=== PATIENT | male | born 1965 | race Caucasian/White ===

== ENCOUNTER 2017-03-29 09:37 | Emergency (ER) | payer MEDICAID, SELFPAY ==
[~2017-03-29] VITALS: Ht 175.3 cm; Wt 63.6 kg
[2017-03-29] MEDS ORDERED: SODIUM CHLORIDE 0.9% 1,000ML IVBOLUS ONE (10:00)
[2017-03-29] MEDS ORDERED: SODIUM CHLORIDE FLUSH 10ML SYR IVF ONE (10:00)
[2017-03-29] MEDS ORDERED: EMTR1TAB14 PO (10:26)
[2017-03-29] MEDS ORDERED: MELO15TA24 PO (10:26)
[2017-03-29] MEDS ORDERED: TIOT18CA INH (10:26)
[2017-03-29] MEDS ORDERED: DIPH1TAB6 PO (10:26)
[2017-03-29] MEDS ORDERED: AZIT500T PO (10:26)
[2017-03-29] MEDS ORDERED: FLUT1AER INH (10:26)
[2017-03-29] MEDS ORDERED: SULF1TAB23 PO (10:26)
[2017-03-29 10:32] LABS: MEAN CORPUSCULAR HEMOGLOBIN 28.6 pg (27.5-34.5); MEAN CORPUSCULAR HGB CONC 33.2 g/dL (33.2-36.2); MEAN CORPUSCULAR VOLUME 86.2 fL (81-97); MEAN PLATELET VOLUME 7.8 fL (7.4-10.4); PLATELET COUNT 253 x10^3/uL (130-400); RED BLOOD COUNT 5.77 x10^6/uL (4.38-5.82); RED CELL DISTRIBUTION WIDTH 14.1 % (9.4-14.8)
[2017-03-29 10:44] LABS: ALANINE AMINOTRANSFERASE 13 U/L (12-78); ALBUMIN 2.5 g/dL (3.4-5.0); ANION GAP 10 mmol/L (5-15); CHLORIDE 96 mmol/L (98-107); CREATININE 1.09 mg/dL (0.7-1.3)
[2017-03-29 10:47] LABS: ALKALINE PHOSPHATASE 90 U/L (45-117); BILIRUBIN,TOTAL 1.5 mg/dL (0.2-1.0)
[2017-03-29 10:57] LABS: MD YES
[2017-03-29 10:59] LABS: BAND#(MANUAL) 3.74 x10^3/uL; BANDS%(MANUAL) 20 % (0-7); LYMPH#(MANUAL) 1.87 x10^3/uL (1-3.4); LYMPHS% (MANUAL) 10 % (22-44); MONOS#(MANUAL) 1.12 x10^3/uL (0.3-2.7); MONOS% (MANUAL) 6 % (2-9); SEG#(MANUAL) 11.97 x10^3/uL (1.8-6.8); SEGS% (MANUAL) 64 % (42-75)
[2017-03-29 11:00] LABS: <PLATELET ESTIMATE> ADEQUATE; <PLT MORPHOLOGY> NORMAL PLT MORPH; ANISOCYTOSIS 1+; TOXIC GRAN 1+
[2017-03-29 11:03] LABS: CULTURE INDICATED? YES; MICROSCOPIC INDICATED
[2017-03-29] MEDS ORDERED: OMNIPAQUE 350 MG/ML, 100ML BOTTLE ONE (11:34)
[2017-03-29] MEDS ORDERED: CIPROFLOXACIN/PMX 400MG/200ML 100 ML IVPB ONE (12:00)
[2017-03-29] MEDS ORDERED: METRONIDAZOLE PMX 500MG/100ML 100 ML IVPB ONE (12:00)
[2017-03-29] MEDS ORDERED: CIPROFLOXACIN/PMX 400MG/200ML 200 ML ONE (12:21)
[2017-03-29] MEDS ORDERED: METRONIDAZOLE PMX 500MG/100ML 100 ML ONE (13:30)
[2017-03-29 14:50] VITALS: BP 122/59
== END 2017-03-29 14:53 | disposition home or self-care (01) ==
LOC: ED 10:17
DX: A09 Infectious gastroenteritis and colitis, unspecified (principal)
CPT/HCPCS: 36415; 74177; 80053; 81001; 83690; 85025; 87086; 96361; 96365; 96368; 99285; J0744; J7030; Q9967

== ENCOUNTER 2018-02-12 08:19 | Emergency (ER) | payer MEDICAID ==
[~2018-02-12] VITALS: Ht 175.3 cm; Wt 66.8 kg
[~2018-02-12 08:19] MED LIST: AZIT500T PO; DIPH1TAB6 PO; EMTR1TAB14 PO; FLUT1AER INH; MELO15TA24 PO; SULF1TAB23 PO; TIOT18CA INH
[2018-02-12] MEDS ORDERED: CEFDINIR 300 MG CAPSULE PO STA (09:26)
[2018-02-12] MEDS ORDERED: PHENAZOPYRIDINE 200 MG TABLET PO ONE (09:30)
[2018-02-12 09:43] LABS: CULTURE INDICATED? YES; MICROSCOPIC INDICATED
[2018-02-12] MEDS ORDERED: PHENAZOPYRIDINE 200 MG TABLET ONE (09:51)
[2018-02-12] MEDS ORDERED: CEFDINIR 300 MG CAPSULE ONE (09:51)
[2018-02-12 09:54] VITALS: BP 121/82
[2018-02-12] MEDS ORDERED: AZITHROMYCIN 250 MG TABLET ONE (10:00)
[2018-02-12] MEDS ORDERED: AZITHROMYCIN 500 MG TABLET PO ONE (10:00)
[2018-02-12] MEDS ORDERED: CEFTRIAXONE 250 MG ONE (10:00)
[2018-02-12] MEDS ORDERED: CEFTRIAXONE 1,000 MG IM ONE (10:00)
[2018-02-12] MEDS ORDERED: LIDOCAINE-MPF 1%, 5ML ONE (10:00)
== END 2018-02-12 10:23 | disposition home or self-care (01) ==
LOC: ED 09:37
DX: N30.00 Acute cystitis without hematuria (principal); Z21 Asymptomatic human immunodeficiency virus [HIV] infection status
CPT/HCPCS: 81001; 87077; 87086; 87186; 87491; 87591; 96372; 99284; J0696

== ENCOUNTER 2018-02-13 05:12 | Emergency (ER) | payer MEDICAID ==
[~2018-02-13] VITALS: Ht 175.3 cm; Wt 67.0 kg
[2018-02-13] MEDS ORDERED: CEFTRIAXONE 1,000 MG ONE (05:43)
[2018-02-13 05:50] LABS: MICROSCOPIC AUTO
[2018-02-13 05:52] VITALS: BP 110/67
[2018-02-13 05:52] LABS: CULTURE INDICATED? YES
[2018-02-13 05:55] LABS: BASOPHILS # (AUTO) 0.06 x10^3/uL (0-0.1); BASOPHILS % (AUTO) 1 % (0-1); EOSINOPHILS # (AUTO) 0.03 x10^3/uL (0-0.4); EOSINOPHILS % (AUTO) 0 % (1-7); LYMPHOCYTES # (AUTO) 1.71 x10^3/uL (1-3.4); LYMPHOCYTES % (AUTO) 20 % (22-44); MD NO; MEAN CORPUSCULAR HEMOGLOBIN 28.7 pg (27.5-34.5); MEAN CORPUSCULAR HGB CONC 33.9 g/dL (33.2-36.2); MEAN CORPUSCULAR VOLUME 84.6 fL (81-97); MEAN PLATELET VOLUME 7.3 fL (7.4-10.4); MONOCYTES % (AUTO) 11 % (2-9); NEUTROPHILS # (AUTO) 5.79 x10^3/uL (1.8-6.8); NEUTROPHILS % (AUTO) 68 % (42-75); PLATELET COUNT 222 x10^3/uL (130-400); RED BLOOD COUNT 4.99 x10^6/uL (4.38-5.82); RED CELL DISTRIBUTION WIDTH 14.6 % (9.4-14.8)
[2018-02-13] MEDS ORDERED: CEFTRIAXONE 1,000 MG IM ONE (06:00)
[2018-02-13 06:03] LABS: ALBUMIN 2.8 g/dL (3.4-5.0); ANION GAP 6 mmol/L (5-15); CALCIUM 8.1 mg/dL (8.5-10.1); CHLORIDE 105 mmol/L (98-107)
[2018-02-13 06:05] LABS: CREATININE 1.18 mg/dL (0.7-1.3)
== END 2018-02-13 06:23 | disposition home or self-care (01) ==
LOC: ED 06:17
DX: N30.00 Acute cystitis without hematuria (principal); N34.2 Other urethritis; F17.210 Nicotine dependence, cigarettes, uncomplicated; Z21 Asymptomatic human immunodeficiency virus [HIV] infection status
CPT/HCPCS: 36415; 80048; 81001; 82040; 85025; 87086; 96372; 99283; J0696

== ENCOUNTER 2018-05-27 23:59 | Emergency (ER) | payer MEDICAID ==
[~2018-05-27] VITALS: Ht 172.7 cm; Wt 86.8 kg
--- NOTE | 2018-05-28 00:47 | NUR ---
pt called to room from lobby
--- NOTE | 2018-05-28 01:20 | NUR ---
AWAITING RESULTS FOR PT. NO IMMEDIATE NEEDS FROM PT. CALL LIGHT WITHIN REACH.
[2018-05-28 01:35] LABS: BASOPHILS # (AUTO) 0.04 x10^3/uL (0-0.1); BASOPHILS % (AUTO) 1 % (0-1); EOSINOPHILS # (AUTO) 0.16 x10^3/uL (0-0.4); EOSINOPHILS % (AUTO) 2 % (1-7); LYMPHOCYTES # (AUTO) 1.59 x10^3/uL (1-3.4); LYMPHOCYTES % (AUTO) 23 % (22-44); MD NO; MEAN CORPUSCULAR HEMOGLOBIN 29.2 pg (27.5-34.5); MEAN CORPUSCULAR HGB CONC 33.9 g/dL (33.2-36.2); MEAN PLATELET VOLUME 7.8 fL (7.4-10.4); MONOCYTES # (AUTO) 0.51 x10^3/uL (0.2-0.8); MONOCYTES % (AUTO) 8 % (2-9); NEUTROPHILS # (AUTO) 4.55 x10^3/uL (1.8-6.8); NEUTROPHILS % (AUTO) 66 % (42-75); PLATELET COUNT 213 x10^3/uL (130-400); RED BLOOD COUNT 5.61 x10^6/uL (4.38-5.82); RED CELL DISTRIBUTION WIDTH 14.4 % (9.4-14.8)
[2018-05-28 01:36] LABS: ALBUMIN 3.5 g/dL (3.4-5.0); ANION GAP 4 mmol/L (5-15); CALCIUM 8.6 mg/dL (8.5-10.1); CHLORIDE 112 mmol/L (98-107); CREATININE 1.29 mg/dL (0.7-1.3)
[2018-05-28 01:39] LABS: TROPONIN I < 0.015 ng/mL (0.000-0.045)
--- NOTE | 2018-05-28 03:21 | NUR ---
AWAITING RECORDS FROM [facility]. NO NEEDS FROM PT AT THIS TIME. VSS.
[2018-05-28 04:43] VITALS: BP 133/70
--- NOTE | 2018-05-28 04:44 | NUR ---
AWAITING RECORDS FROM [facility]. NO IMMEDIATE NEEDS FROM PT. GIVEN WATER PER REQUEST.
== END 2018-05-28 05:22 | disposition home or self-care (01) ==
LOC: ED 05-28 01:10
DX: J44.1 Chronic obstructive pulmonary disease with (acute) exacerbation (principal); R06.00 Dyspnea, unspecified; Z21 Asymptomatic human immunodeficiency virus [HIV] infection status
CPT/HCPCS: 36415; 71046; 80048; 82040; 84484; 85025; 93005; 99284

== ENCOUNTER 2018-07-21 06:47 | Emergency (ER) | payer MEDICAID ==
[~2018-07-21] VITALS: Ht 175.3 cm; Wt 64.3 kg
[2018-07-21 06:51] VITALS: BP 125/81
--- NOTE | 2018-07-21 07:05 | NUR ---
THIS IS A 52 YEAR OLD MALE WHO C/O OF HAVING A "DILDO" STUCK IN RECTUM X 3 HOURS. PT HAS HX OF HIV, AND METH DRUG USE. PT COOPERATIVE. ASKED TO GET UNDRESS, AWAIT MD FOR ORDER.
--- NOTE | 2018-07-21 07:38 | NUR ---
PT RESTING, VERBALIZED NO NEEDS AT THIS TIME.
--- NOTE | 2018-07-21 08:34 | NUR ---
ASSISTED WITH FB REMOVAL FROM RECTUM. PT TOLERATED WELL. JULIO CESAR KING
[2018-07-21] MEDS ORDERED: CEFAZOLIN 1,000 MG ONE (08:41)
[2018-07-21] MEDS ORDERED: CEFAZOLIN 1,000 MG IM ONE (09:00)
--- NOTE | 2018-07-21 09:11 | NUR ---
TASK RN: Discharge instructions discussed with patient, questions answered, verbalizes understanding. Prescription provided with instruction for use, patient verbalizes understanding. Patient ambulates with steady gait to discharge desk.
== END 2018-07-21 09:14 | disposition home or self-care (01) ==
LOC: ED 08:43
DX: T18.5XXA Foreign body in anus and rectum, initial encounter (principal); J44.9 Chronic obstructive pulmonary disease, unspecified; X58.XXXA Exposure to other specified factors, initial encounter; Y93.89 Activity, other specified; Y92.89 Other specified places as the place of occurrence of the external cause; Y99.8 Other external cause status
CPT/HCPCS: 96372; 99284; J0690

== ENCOUNTER 2018-10-22 23:44 | Inpatient (IN) | payer MEDICAID ==
[~2018-10-22] VITALS: Ht 175.3 cm; Wt 66.9 kg
--- NOTE | 2018-10-23 | NUR ---
FEVER AT HOME AND RIGHT SIDED CHEST PAIN, STATED 1899. HX OF COLAPSED LUNG. MONITORS APPLIED, SIDERAIL SUP X2, CALL LIGHT WITHIN REACH. ERP AT BEDSIDE FOR EVAL
[2018-10-23] MEDS ORDERED: TIOT18CA INH (00:03)
[2018-10-23] MEDS ORDERED: ALBU0.63 NEB (00:03)
[2018-10-23] MEDS ORDERED: BICT1TAB PO (00:06)
[2018-10-23] MEDS ORDERED: FLUT1AER INH (00:06)
[2018-10-23] MEDS ORDERED: HYDROcodone/APAP 5/325 TABLET ONE (00:08)
--- NOTE | 2018-10-23 00:10 | NUR ---
pt medicated pr mar
[2018-10-23 00:29] LABS: BASOPHILS # (AUTO) 0.02 x10^3/uL (0-0.1); BASOPHILS % (AUTO) 0 % (0-1); EOSINOPHILS # (AUTO) 0.01 x10^3/uL (0-0.4); EOSINOPHILS % (AUTO) 0 % (1-7); LYMPHOCYTES # (AUTO) 0.83 x10^3/uL (1-3.4); LYMPHOCYTES % (AUTO) 8 % (22-44); MD NO; MEAN CORPUSCULAR HEMOGLOBIN 29.3 pg (27.5-34.5); MEAN CORPUSCULAR HGB CONC 33.4 g/dL (33.2-36.2); MEAN CORPUSCULAR VOLUME 87.6 fL (81-97); MEAN PLATELET VOLUME 7.5 fL (7.4-10.4); MONOCYTES # (AUTO) 0.61 x10^3/uL (0.2-0.8); MONOCYTES % (AUTO) 6 % (2-9); NEUTROPHILS # (AUTO) 9.26 x10^3/uL (1.8-6.8); NEUTROPHILS % (AUTO) 86 % (42-75); PLATELET COUNT 191 x10^3/uL (130-400); RED BLOOD COUNT 5.28 x10^6/uL (4.38-5.82); RED CELL DISTRIBUTION WIDTH 14.2 % (9.4-14.8)
[2018-10-23] MEDS ORDERED: HYDROcodone/APAP 5/325 TABLET PO ONE (00:30)
[2018-10-23 00:38] LABS: ALANINE AMINOTRANSFERASE 17 U/L (12-78); ALBUMIN 3.5 g/dL (3.4-5.0); ANION GAP 6 mmol/L (5-15); CALCIUM 8.3 mg/dL (8.5-10.1); CHLORIDE 105 mmol/L (98-107); D-DIMER 0.62 ug/mlFEU (0.00-0.52); INTERNATIONAL NORMALIZED RATIO 1.12 (0.93-1.1); PROTHROMBIN TIME 11.7 Seconds (9.6-11.5)
[2018-10-23 00:42] LABS: ALKALINE PHOSPHATASE 99 U/L (45-117); BILIRUBIN,TOTAL 0.7 mg/dL (0.2-1.0); TOTAL PROTEIN 7.3 g/dL (6.4-8.2); TROPONIN I < 0.015 ng/mL (0.000-0.045)
--- NOTE | 2018-10-23 01:02 | NUR ---
iv site started. additional order received for cta
--- NOTE | 2018-10-23 01:07 | NUR ---
PT TO CT
[2018-10-23] MEDS ORDERED: CEFTRIAXONE PMX 1GM/50ML 50 ML ONE (02:23)
[2018-10-23] MEDS ORDERED: AZITHROMYCIN 500 MG in SODIUM CHLORIDE 0.9% 250 ML IV ONE (02:30)
[2018-10-23] MEDS ORDERED: SODIUM CHLORIDE 0.9% 1,000ML IVBOLUS ONE (02:30)
[2018-10-23] MEDS ORDERED: CEFTRIAXONE PMX 1GM/50ML 50 ML IV ONE ×2 (02:30→06:30)
--- NOTE | 2018-10-23 02:37 | NUR ---
iv abx started, lab c/x x 2 sets drawn prior
[2018-10-23 03:21] VITALS: BP 97/59
[2018-10-23] MEDS ORDERED: SODIUM CHLORIDE 0.9% 1,000 ML IV SCH (05:54)
[2018-10-23] MEDS ORDERED: morphine SULFATE 10 MG/ML, 1ML IVPush PRN (06:00)
[2018-10-23] MEDS ORDERED: BISACODYL 10 MG SUPP PR PRN (06:00)
[2018-10-23] MEDS ORDERED: PROMETHAZINE 25 MG/ML, 1ML IM PRN (06:00)
[2018-10-23] MEDS: NICOTINE 14MG/24 HR PATCH.TD24 TD SCH (06:00)
[2018-10-23] MEDS ORDERED: LABETALOL 5MG/ML, 20ML IVPush PRN (06:00)
[2018-10-23] MEDS ORDERED: hydrALAzine 20 MG/ML, 1ML IVPush PRN (06:00)
[2018-10-23] MEDS ORDERED: ONDANSETRON ODT 4 MG PO PRN (06:00)
[2018-10-23] MEDS ORDERED: POLYETHYLENE GLYCOL 17 GM PACKET PO PRN (06:00)
[2018-10-23] MEDS ORDERED: ONDANSETRON 2MG/ML, 2ML IVPush PRN (06:00)
[2018-10-23] MEDS ORDERED: ACETAMINOPHEN 325 MG TABLET PO PRN (06:00)
[2018-10-23] MEDS ORDERED: OXYcodone IR 5MG TABLET PO PRN (06:00)
[2018-10-23] MEDS ORDERED: DOCUSATE 100 MG CAPSULE PO PRN (06:00)
[2018-10-23] MEDS ORDERED: POTASSIUM CHLORIDE 20 MEQ TAB.ER.PRT PO ONE (06:30)
[2018-10-23 07:09] VITALS: BP 102/66
[2018-10-23 07:21] LABS: FREE T4 (FREE THYROXINE) 1.1 ng/dL (0.76-1.46)
[2018-10-23] MEDS: ALBUTEROL SULFATE 2.5 MG/3 ML NPPB SCH ×4 (07:30→19:56)
[2018-10-23] MEDS: BUDESONIDE 0.5 MG/2 ML INHA NPPB SCH ×2 (07:30→19:56)
[2018-10-23 07:58] LABS: HEMOGLOBIN A1C 5.7 % (4.2-6.3)
[2018-10-23] MEDS: AZITHROMYCIN 500 MG in SODIUM CHLORIDE 0.9% 250 ML IV SCH (08:47)
[2018-10-23 10:06] LABS: MICROSCOPIC AUTO
[2018-10-23 10:07] LABS: CULTURE INDICATED? NO
[2018-10-23] MEDS ORDERED: POTASSIUM CHLORIDE 20 MEQ TAB.ER.PRT ONE (10:49)
[2018-10-23] MEDS: BICTEGRAV/EMTRICIT/TENOFOV ALA TAB PO SCH (10:52)
[2018-10-23] MEDS: ENOXAPARIN 40 MG/0.4 ML SQ SCH (10:53)
[2018-10-23 13:16] VITALS: BP 108/72
[2018-10-23 19:16] VITALS: BP 120/70
[2018-10-24] MEDS: CEFTRIAXONE PMX 2GM/50ML 50 ML IV SCH (00:29)
[2018-10-24 00:54] VITALS: BP 135/74
[2018-10-24] MEDS: NICOTINE 14MG/24 HR PATCH.TD24 TD SCH (04:18)
[2018-10-24 05:54] LABS: BASOPHILS # (AUTO) 0.02 x10^3/uL (0-0.1); BASOPHILS % (AUTO) 0 % (0-1); EOSINOPHILS # (AUTO) 0.02 x10^3/uL (0-0.4); EOSINOPHILS % (AUTO) 0 % (1-7); LYMPHOCYTES # (AUTO) 0.78 x10^3/uL (1-3.4); LYMPHOCYTES % (AUTO) 16 % (22-44); MD NO; MEAN CORPUSCULAR HEMOGLOBIN 29.6 pg (27.5-34.5); MEAN CORPUSCULAR HGB CONC 33.2 g/dL (33.2-36.2); MEAN CORPUSCULAR VOLUME 89.2 fL (81-97); MONOCYTES # (AUTO) 0.45 x10^3/uL (0.2-0.8); MONOCYTES % (AUTO) 9 % (2-9); NEUTROPHILS # (AUTO) 3.49 x10^3/uL (1.8-6.8); NEUTROPHILS % (AUTO) 73 % (42-75); PLATELET COUNT 178 x10^3/uL (130-400); RED BLOOD COUNT 4.81 x10^6/uL (4.38-5.82); RED CELL DISTRIBUTION WIDTH 14.6 % (9.4-14.8)
[2018-10-24 06:02] LABS: CHLORIDE 109 mmol/L (98-107)
[2018-10-24 06:16] LABS: ALANINE AMINOTRANSFERASE 15 U/L (12-78); ALKALINE PHOSPHATASE 79 U/L (45-117); ANION GAP 7 mmol/L (5-15); BILIRUBIN,TOTAL 1.3 mg/dL (0.2-1.0); CALCIUM 8.1 mg/dL (8.5-10.1); CHOL/HDL RATIO 2.8; CHOLESTEROL, TOTAL 102 mg/dL (140-239); CREATININE 1.06 mg/dL (0.7-1.3); HDL CHOL % 35 % (26-37); HDL CHOLESTEROL (DIRECT) 36 mg/dL (40-60); LDL CHOLESTEROL,CALCULATED 54 mg/dL (54-169); LDL/HDL RATIO 1.5 (0.5-3.0); TOTAL PROTEIN 6.7 g/dL (6.4-8.2); TRIGLYCERIDES 60 mg/dL (50-200); VLDL CHOLESTEROL 12 mg/dL (0-25)
[2018-10-24] MEDS: BUDESONIDE 0.5 MG/2 ML INHA NPPB SCH ×2 (07:55→19:10)
[2018-10-24] MEDS: ALBUTEROL SULFATE 2.5 MG/3 ML NPPB SCH ×3 (07:55→16:30)
[2018-10-24] MEDS: AZITHROMYCIN 500 MG in SODIUM CHLORIDE 0.9% 250 ML IV SCH (08:04)
[2018-10-24 08:12] VITALS: BP 143/82
[2018-10-24] MEDS: ENOXAPARIN 40 MG/0.4 ML SQ SCH (09:40)
[2018-10-24] MEDS: BICTEGRAV/EMTRICIT/TENOFOV ALA TAB PO SCH (11:23)
[2018-10-24 13:46] VITALS: BP 139/76
[2018-10-24 19:10] VITALS: BP 124/75
[2018-10-25] MEDS: CEFTRIAXONE PMX 2GM/50ML 50 ML IV SCH (00:36)
[2018-10-25 00:44] VITALS: BP 132/82
[2018-10-25] MEDS: NICOTINE 14MG/24 HR PATCH.TD24 TD SCH (01:24)
[2018-10-25 06:30] VITALS: BP 164/82
[2018-10-25] MEDS: AZITHROMYCIN 500 MG in SODIUM CHLORIDE 0.9% 250 ML IV SCH (07:36)
[2018-10-25] MEDS: BICTEGRAV/EMTRICIT/TENOFOV ALA TAB PO SCH (09:11)
[2018-10-25] MEDS: ENOXAPARIN 40 MG/0.4 ML SQ SCH (09:11)
[2018-10-25] MEDS: BUDESONIDE 0.5 MG/2 ML INHA NPPB SCH (09:50)
[2018-10-25] MEDS ORDERED: CEFD300C37 PO (12:14)
[2018-10-25] MEDS ORDERED: AZIT500T PO (12:14)
[2018-10-25 13:15] VITALS: BP 104/65
[2018-10-25] MEDS ORDERED: BUDESONIDE 0.5 MG/2 ML INHA NPPB SCH (21:00)
== END 2018-10-25 14:30 | disposition home or self-care (01) | DRG 974 ==
LOC: ED 10-23 02:11 → 4EST 10-23 02:16 → ED 10-23 02:36 → DCLOUNGE 10-25 14:20
PROVIDERS: ADMIT Internal Medicine; ATTEND Internal Medicine
DX: A41.9 Sepsis, unspecified organism (principal); J96.01 Acute respiratory failure with hypoxia; B20 Human immunodeficiency virus [HIV] disease; J18.1 Lobar pneumonia, unspecified organism; J44.0 Chronic obstructive pulmonary disease with (acute) lower respiratory infection; F17.210 Nicotine dependence, cigarettes, uncomplicated; E87.6 Hypokalemia; M19.90 Unspecified osteoarthritis, unspecified site; Z71.51 Drug abuse counseling and surveillance of drug abuser
CPT/HCPCS: 36415; 84145; 99291; J7613; J7626; 71045; 71275; 80053; 80061; 81001; 83036; 83605; 83690; 83735; 84100; 84439; 84443; 84484; 85025; 85379; 85610; 85730; 86361; 87040; 87070; 87205; 93005; 94640; G0378; J0456; J0696; J1650; J7030; J7050

== ENCOUNTER 2019-02-02 06:51 | Inpatient (IN) | payer MEDICAID ==
[~2019-02-02] VITALS: Ht 172.7 cm; Wt 76.7 kg
[~2019-02-02 06:51] MED LIST changes: +ALBU0.63 NEB; +AMOX1TAB64 PO; +BICT1TAB PO; +CEFD300C37 PO; +FLUT1DIS3 INH; +KETO10TA PO; +NICO-487 TD; +PRED10TA PO; +SULF1TAB24 PO
--- NOTE | 2019-02-02 07:13 | NUR ---
PT HERE TODAY BECAUSE HE FEELS LIKE HE HAS PNA AGAIN. PRESENTS NEEDING 4L NC (NORMALLY ON 2L NC AT HOME). PT RESTING ON GURNEY FEELING COLD. CONNECTED TO MONITIOR. TACHYCARDIC. AT BEDSIDE ASSESSING PT NOW. PT WAS ADMITTED LAST WEEK, STAYED ONE DAY, WAS D/C'D WITH ABX AND FINISHED THEM APPROPRIATELY. DENIES CP. IS SOB. HAS HAD FEVER AT HOME- STARTED TODAY, 3 HOURS AGO. DID NOT TAKE TYLENOL OR MOTRIN. HAS NOT BEEN AROUND ANYONE WHO IS SICK.
[2019-02-02] MEDS ORDERED: SODIUM CHLORIDE 0.9% 1,000 ML IV ONE ×2 (07:19→09:18)
[2019-02-02] MEDS ORDERED: ACETAMINOPHEN 500 MG TABLET PO ONE (07:30)
[2019-02-02] MEDS ORDERED: VANCOMYCIN PER PHARMACY MC ONE (07:30)
[2019-02-02] MEDS ORDERED: SODIUM CHLORIDE 0.9% 1,000ML IVBOLUS ONE (07:30)
[2019-02-02] MEDS ORDERED: VANCOMYCIN 1,300 MG in SODIUM CHLORIDE 0.9% 250 ML IV ONE (07:30)
[2019-02-02] MEDS ORDERED: SODIUM CHLORIDE FLUSH 10ML SYR IVF ONE (07:30)
[2019-02-02] MEDS ORDERED: PIPERACILLIN/TAZO/PMX 4.5GM 100 ML IVPB ONE (07:30)
--- NOTE | 2019-02-02 07:52 | NUR ---
PIV STARTED. BLOOD AND BLOOD CULTURES DRAWN. PT MEDICATED PER EMAR. PT AWARE OF POC RE: ADMISSION TO HOSPITAL.
[2019-02-02] MEDS ORDERED: ACETAMINOPHEN 500 MG TABLET ONE (08:08)
[2019-02-02 08:18] LABS: MEAN CORPUSCULAR HEMOGLOBIN 26.7 pg (27.5-34.5); MEAN CORPUSCULAR HGB CONC 33.1 g/dL (33.2-36.2); MEAN CORPUSCULAR VOLUME 80.8 fL (81-97); MEAN PLATELET VOLUME 8.6 fL (7.4-10.4); PLATELET COUNT 124 x10^3/uL (130-400); RED BLOOD COUNT 4.47 x10^6/uL (4.38-5.82); RED CELL DISTRIBUTION WIDTH 18.1 % (9.4-14.8)
[2019-02-02 08:19] LABS: ALBUMIN 2.4 g/dL (3.4-5.0); ANION GAP 6 mmol/L (5-15); CALCIUM 7.9 mg/dL (8.5-10.1); CHLORIDE 93 mmol/L (98-107)
[2019-02-02 08:25] LABS: ALANINE AMINOTRANSFERASE 235 U/L (12-78); ALKALINE PHOSPHATASE 333 U/L (45-117); BILIRUBIN,TOTAL 0.9 mg/dL (0.2-1.0); CREATININE 1.05 mg/dL (0.7-1.3); TOTAL PROTEIN 7.1 g/dL (6.4-8.2)
[2019-02-02 08:39] LABS: MD YES
[2019-02-02 08:44] LABS: BANDS%(MANUAL) 12 % (0-7); LYMPH#(MANUAL) 0.13 x10^3/uL (1-3.4); LYMPHS% (MANUAL) 5 % (22-44); METAMYELOCYTES# (MANUAL) 0.05 x10^3/uL (0-0); METAMYELOCYTES% (MANUAL) 2 % (0-1); MONOS#(MANUAL) 0.38 x10^3/uL (0.3-2.7); MONOS% (MANUAL) 15 % (2-9); MYELOCYTES# (MANUAL) 0.05 x10^3/uL (0-0); MYELOCYTES% (MANUAL) 2 % (0-0); REACTIVE LYMPHS # (MANUAL) 0.08 x10^3/uL (0-0); REACTIVE LYMPHS % (MANUAL) 3 % (0-0); SEG#(MANUAL) 1.53 x10^3/uL (1.8-6.8); SEGS% (MANUAL) 61 % (42-75)
[2019-02-02 08:45] LABS: ANISOCYTOSIS 1+; MICROCYTOSIS 1+; POLYCHROMASIA 1+
[2019-02-02 08:47] LABS: <PLATELET ESTIMATE> DECREASED; LARGE PLATELETS 1+
[2019-02-02 08:53] LABS: ACETONE, SERUM Negative (Negative)
--- NOTE | 2019-02-02 09:16 | NUR ---
[facility] AT BEDSIDE ASSESSING PT NOW.
[2019-02-02] MEDS ORDERED: SODIUM CHLORIDE FLUSH 10ML SYR IVF PRN (09:30)
--- NOTE | 2019-02-02 09:31 | NUR ---
PT RESTING ON GURNEY. NADN. ESPINAL.
--- NOTE | 2019-02-02 09:43 | NUR ---
URINE COLLECTED. PT RESTING ON GURNEY. US AT BEDSIDE. CONNECTED TO MONITOR. VSS. SUSSY.
[2019-02-02 10:09] LABS: AMPHETAMINE SCREEN, URINE Negative (Negative); BARBITURATE SCREEN, URINE Negative (Negative); BENZODIAZEPINE SCREEN, URINE Negative (Negative); CANNABINOID SCREEN, URINE Negative (Negative); COCAINE SCREEN, URINE Negative (Negative); METHADONE SCREEN, URINE Negative (Negative); OPIATE SCREEN, URINE Negative (Negative)
--- NOTE | 2019-02-02 10:14 | NUR ---
REPORT CALLED TO [facility]. POC DISCUSSED. PT TO BE TRANSPORTED [id number].
--- NOTE | 2019-02-02 10:18 | NUR ---
LAB AND CT AT BEDSIDE. VSS. HI.
--- NOTE | 2019-02-02 10:27 | NUR ---
PT IN CT NOW.
[2019-02-02 10:37] LABS: C-REACTIVE PROTEIN, QUANT > 19.00 mg/dL (0.02-0.49)
[2019-02-02] MEDS ORDERED: OMNIPAQUE 350 MG/ML, 100ML BOTTLE ONE (10:41)
[2019-02-02 10:48] LABS: HCT (SEDRATE) 36.1 % (39.2-51.8)
[2019-02-02] MEDS ORDERED: ALBUTEROL/IPRATROPIUM 2.5MG/0.5MG, 3 ML NPPB SCH (11:00)
[2019-02-02 11:06] VITALS: BP 100/61
[2019-02-02] MEDS: ENOXAPARIN 40 MG/0.4 ML SQ SCH (11:59)
[2019-02-02] MEDS: SODIUM CHLORIDE 0.9% 1,000 ML IV SCH ×2 (11:59→20:57)
[2019-02-02] MEDS: NICOTINE 21 MG/24 HR PATCH.TD24 TD SCH (12:00)
[2019-02-02 13:35] VITALS: BP 90/55
[2019-02-02] MEDS: ALBUTEROL/IPRATROPIUM 2.5MG/0.5MG, 3 ML NPPB SCH ×2 (15:15→20:21)
[2019-02-02] MEDS: PIPERACILLIN/TAZO/PMX 3.375GM 50 ML IV SCH (17:24)
[2019-02-02 19:44] VITALS: BP 96/58
[2019-02-02] MEDS: BUDESONIDE 0.5 MG/2 ML INHA INH SCH (20:21)
[2019-02-02] MEDS ORDERED: TEMPLATE NON-FORMULARY MED. (Fluticasone/Salmeterol** (Advair 250-50 Diskus**) 1 PUFF) INH SCH (21:00)
[2019-02-02] MEDS: LINEZOLID 600 MG TABLET PO SCH (22:32)
[2019-02-03] MEDS: PIPERACILLIN/TAZO/PMX 3.375GM 50 ML IV SCH ×4 (00:11→16:11)
[2019-02-03 01:20] VITALS: BP 127/80
[2019-02-03] MEDS ORDERED: ACETAMINOPHEN 325 MG TABLET PO PRN (01:30)
[2019-02-03] MEDS ORDERED: IBUPROFEN 200 MG TABLET PO ONE (02:00)
[2019-02-03] MEDS: ALBUTEROL/IPRATROPIUM 2.5MG/0.5MG, 3 ML NPPB SCH ×4 (03:00→20:08)
[2019-02-03 04:54] LABS: MEAN CORPUSCULAR HEMOGLOBIN 27.3 pg (27.5-34.5); MEAN CORPUSCULAR HGB CONC 33.8 g/dL (33.2-36.2); MEAN CORPUSCULAR VOLUME 80.9 fL (81-97); PLATELET COUNT 112 x10^3/uL (130-400); RED BLOOD COUNT 3.49 x10^6/uL (4.38-5.82)
[2019-02-03 04:55] LABS: ALANINE AMINOTRANSFERASE 154 U/L (12-78); ALBUMIN 1.9 g/dL (3.4-5.0); ANION GAP 8 mmol/L (5-15); CHLORIDE 97 mmol/L (98-107); CREATININE 0.91 mg/dL (0.7-1.3)
[2019-02-03 04:57] LABS: ALKALINE PHOSPHATASE 310 U/L (45-117); BILIRUBIN,TOTAL 0.9 mg/dL (0.2-1.0); TOTAL PROTEIN 5.2 g/dL (6.4-8.2)
[2019-02-03 05:35] LABS: MD YES
[2019-02-03 05:40] LABS: BAND#(MANUAL) 0.15 x10^3/uL; BANDS%(MANUAL) 9 % (0-7); LYMPH#(MANUAL) 0.15 x10^3/uL (1-3.4); LYMPHS% (MANUAL) 9 % (22-44); METAMYELOCYTES# (MANUAL) 0.05 x10^3/uL (0-0); METAMYELOCYTES% (MANUAL) 3 % (0-1); MONOS#(MANUAL) 0.22 x10^3/uL (0.3-2.7); MONOS% (MANUAL) 13 % (2-9); MYELOCYTES# (MANUAL) 0.02 x10^3/uL (0-0); MYELOCYTES% (MANUAL) 1 % (0-0); SEG#(MANUAL) 1.11 x10^3/uL (1.8-6.8); SEGS% (MANUAL) 65 % (42-75)
[2019-02-03 05:41] LABS: ANISOCYTOSIS 1+; MICROCYTOSIS 1+; POLYCHROMASIA 1+
[2019-02-03 05:42] LABS: <PLATELET ESTIMATE> DECREASED; <PLT MORPHOLOGY> NORMAL PLT MORPH
[2019-02-03 07:27] VITALS: BP 97/59
[2019-02-03] MEDS: BICTEGRAV/EMTRICIT/TENOFOV ALA TAB PO SCH ×2 (07:58→09:31)
[2019-02-03] MEDS: LINEZOLID 600 MG TABLET PO SCH ×3 (07:58→20:51)
[2019-02-03] MEDS: BUDESONIDE 0.5 MG/2 ML INHA INH SCH ×2 (10:20→20:08)
[2019-02-03 12:56] VITALS: BP 95/55
[2019-02-03] MEDS: NICOTINE 21 MG/24 HR PATCH.TD24 TD SCH (13:01)
[2019-02-03] MEDS: ENOXAPARIN 40 MG/0.4 ML SQ SCH (13:01)
[2019-02-03 19:18] VITALS: BP_SYST 112; BP_SYST 152; BP_DIAS 74; BP_DIAS 82
[2019-02-04] MEDS: PIPERACILLIN/TAZO/PMX 3.375GM 50 ML IV SCH ×4 (00:23→23:57)
[2019-02-04 01:15] VITALS: BP 147/76
[2019-02-04] MEDS: ALBUTEROL/IPRATROPIUM 2.5MG/0.5MG, 3 ML NPPB SCH ×4 (03:00→20:06)
[2019-02-04 06:14] LABS: ANION GAP 8 mmol/L (5-15); CALCIUM 7.4 mg/dL (8.5-10.1); CHLORIDE 94 mmol/L (98-107)
[2019-02-04 06:19] LABS: ALANINE AMINOTRANSFERASE 136 U/L (12-78); ALKALINE PHOSPHATASE 381 U/L (45-117); BILIRUBIN,TOTAL 0.8 mg/dL (0.2-1.0); CREATININE 0.92 mg/dL (0.7-1.3); TOTAL PROTEIN 6.1 g/dL (6.4-8.2)
[2019-02-04 06:26] LABS: MEAN CORPUSCULAR HEMOGLOBIN 26.9 pg (27.5-34.5); MEAN CORPUSCULAR HGB CONC 33.2 g/dL (33.2-36.2); MEAN CORPUSCULAR VOLUME 80.9 fL (81-97); MEAN PLATELET VOLUME 8.6 fL (7.4-10.4); PLATELET COUNT 102 x10^3/uL (130-400); RED CELL DISTRIBUTION WIDTH 18.2 % (9.4-14.8)
[2019-02-04 06:27] LABS: MD YES
[2019-02-04 06:38] LABS: ANISOCYTOSIS 1+; BAND#(MANUAL) 0.08 x10^3/uL; BANDS%(MANUAL) 3 % (0-7); EOS#(MANUAL) 0.03 x10^3/uL (0.0-0.4); EOS% (MANUAL) 1 % (1-7); LYMPH#(MANUAL) 0.31 x10^3/uL (1-3.4); LYMPHS% (MANUAL) 12 % (22-44); METAMYELOCYTES# (MANUAL) 0.08 x10^3/uL (0-0); METAMYELOCYTES% (MANUAL) 3 % (0-1); MICROCYTOSIS 1+; MONOS#(MANUAL) 0.29 x10^3/uL (0.3-2.7); MONOS% (MANUAL) 11 % (2-9); MYELOCYTES# (MANUAL) 0.05 x10^3/uL (0-0); MYELOCYTES% (MANUAL) 2 % (0-0); POLYCHROMASIA 1+; REACTIVE LYMPHS # (MANUAL) 0.03 x10^3/uL (0-0); REACTIVE LYMPHS % (MANUAL) 1 % (0-0); SEG#(MANUAL) 1.74 x10^3/uL (1.8-6.8); SEGS% (MANUAL) 67 % (42-75)
[2019-02-04 06:40] LABS: <PLATELET ESTIMATE> DECREASED; <PLT MORPHOLOGY> NORMAL PLT MORPH
[2019-02-04 07:03] VITALS: BP 99/62
[2019-02-04] MEDS: LINEZOLID 600 MG TABLET PO SCH ×2 (08:39→21:57)
[2019-02-04] MEDS: BICTEGRAV/EMTRICIT/TENOFOV ALA TAB PO SCH (08:39)
[2019-02-04] MEDS: BUDESONIDE 0.5 MG/2 ML INHA INH SCH ×2 (09:17→20:07)
[2019-02-04 12:40] VITALS: BP 108/65
[2019-02-04] MEDS: SODIUM CHLORIDE 0.9% 1,000 ML IV SCH ×2 (13:04→23:57)
[2019-02-04] MEDS: ENOXAPARIN 40 MG/0.4 ML SQ SCH (13:05)
[2019-02-04] MEDS: NICOTINE 21 MG/24 HR PATCH.TD24 TD SCH (13:05)
[2019-02-04 20:16] VITALS: BP 99/58
[2019-02-05] MEDS: ALBUTEROL/IPRATROPIUM 2.5MG/0.5MG, 3 ML NPPB SCH ×4 (02:53→19:09)
[2019-02-05 03:50] VITALS: BP 103/64
[2019-02-05 05:40] LABS: MEAN CORPUSCULAR HEMOGLOBIN 26.7 pg (27.5-34.5); MEAN CORPUSCULAR HGB CONC 33.6 g/dL (33.2-36.2); MEAN CORPUSCULAR VOLUME 79.3 fL (81-97); MEAN PLATELET VOLUME 8.1 fL (7.4-10.4); PLATELET COUNT 136 x10^3/uL (130-400); RED BLOOD COUNT 4.08 x10^6/uL (4.38-5.82); RED CELL DISTRIBUTION WIDTH 18.1 % (9.4-14.8)
[2019-02-05 05:43] LABS: ALBUMIN 1.9 g/dL (3.4-5.0); ANION GAP 7 mmol/L (5-15); CALCIUM 7.2 mg/dL (8.5-10.1); CHLORIDE 96 mmol/L (98-107)
[2019-02-05 05:47] LABS: ALANINE AMINOTRANSFERASE 124 U/L (12-78); ALKALINE PHOSPHATASE 460 U/L (45-117); BILIRUBIN,TOTAL 1.1 mg/dL (0.2-1.0); TOTAL PROTEIN 5.8 g/dL (6.4-8.2)
[2019-02-05 06:06] LABS: MD YES
[2019-02-05 06:09] LABS: BANDS%(MANUAL) 4 % (0-7); EOS#(MANUAL) 0.03 x10^3/uL (0.0-0.4); EOS% (MANUAL) 1 % (1-7); METAMYELOCYTES# (MANUAL) 0.05 x10^3/uL (0-0); METAMYELOCYTES% (MANUAL) 2 % (0-1); MONOS#(MANUAL) 0.21 x10^3/uL (0.3-2.7); MONOS% (MANUAL) 8 % (2-9); NRBC % (MANUAL) 1 % (0-1)
[2019-02-05 06:11] LABS: LYMPH#(MANUAL) 0.21 x10^3/uL (1-3.4); LYMPHS% (MANUAL) 8 % (22-44); SEGS% (MANUAL) 77 % (42-75)
[2019-02-05 06:12] LABS: <PLATELET ESTIMATE> ADEQUATE; <PLT MORPHOLOGY> NORMAL PLT MORPH; ANISOCYTOSIS 1+; MICROCYTOSIS 1+; POLYCHROMASIA 1+
[2019-02-05 06:59] VITALS: BP 110/72
[2019-02-05] MEDS: SODIUM CHLORIDE 0.9% 1,000 ML IV SCH ×3 (08:21→23:49)
[2019-02-05] MEDS: PIPERACILLIN/TAZO/PMX 3.375GM 50 ML IV SCH ×3 (08:22→23:49)
[2019-02-05] MEDS: LINEZOLID 600 MG TABLET PO SCH ×2 (08:22→19:43)
[2019-02-05] MEDS: BICTEGRAV/EMTRICIT/TENOFOV ALA TAB PO SCH (08:23)
[2019-02-05] MEDS: BUDESONIDE 0.5 MG/2 ML INHA INH SCH ×2 (09:25→19:09)
[2019-02-05] MEDS: ENOXAPARIN 40 MG/0.4 ML SQ SCH (12:00)
[2019-02-05 12:16] VITALS: BP 98/60
[2019-02-05] MEDS: NICOTINE 21 MG/24 HR PATCH.TD24 TD SCH (12:35)
[2019-02-05 18:57] VITALS: BP 115/64
[2019-02-05] MEDS: IBUPROFEN 200 MG TABLET PO PRN (19:44)
[2019-02-06 01:14] VITALS: BP 95/54
[2019-02-06] MEDS: ALBUTEROL/IPRATROPIUM 2.5MG/0.5MG, 3 ML NPPB SCH ×4 (03:00→21:00)
[2019-02-06 05:50] LABS: INTERNATIONAL NORMALIZED RATIO 1.43 (0.93-1.1); PROTHROMBIN TIME 14.8 Seconds (9.6-11.5)
[2019-02-06 05:54] LABS: ALBUMIN 1.8 g/dL (3.4-5.0); ANION GAP 5 mmol/L (5-15); CALCIUM 7.2 mg/dL (8.5-10.1); CHLORIDE 102 mmol/L (98-107)
[2019-02-06 05:59] LABS: ALANINE AMINOTRANSFERASE 103 U/L (12-78); ALKALINE PHOSPHATASE 374 U/L (45-117); BILIRUBIN,TOTAL 0.9 mg/dL (0.2-1.0); CREATININE 0.83 mg/dL (0.7-1.3); TOTAL PROTEIN 5.3 g/dL (6.4-8.2)
[2019-02-06 06:03] LABS: MEAN CORPUSCULAR HEMOGLOBIN 26.9 pg (27.5-34.5); MEAN CORPUSCULAR HGB CONC 33.9 g/dL (33.2-36.2); MEAN CORPUSCULAR VOLUME 79.3 fL (81-97); MEAN PLATELET VOLUME 7.6 fL (7.4-10.4); PLATELET COUNT 100 x10^3/uL (130-400); RED BLOOD COUNT 3.75 x10^6/uL (4.38-5.82); RED CELL DISTRIBUTION WIDTH 18.6 % (9.4-14.8)
[2019-02-06 06:30] LABS: MD YES
[2019-02-06 06:34] LABS: BAND#(MANUAL) 0.11 x10^3/uL; BANDS%(MANUAL) 8 % (0-7); LYMPH#(MANUAL) 0.13 x10^3/uL (1-3.4); LYMPHS% (MANUAL) 9 % (22-44); METAMYELOCYTES# (MANUAL) 0.01 x10^3/uL (0-0); METAMYELOCYTES% (MANUAL) 1 % (0-1); MONOS#(MANUAL) 0.11 x10^3/uL (0.3-2.7); MONOS% (MANUAL) 8 % (2-9); SEG#(MANUAL) 1.04 x10^3/uL (1.8-6.8); SEGS% (MANUAL) 74 % (42-75)
[2019-02-06 06:35] LABS: <PLATELET ESTIMATE> DECREASED; <PLT MORPHOLOGY> NORMAL PLT MORPH; ANISOCYTOSIS 1+; MICROCYTOSIS 1+; POLYCHROMASIA 1+
[2019-02-06 08:00] VITALS: BP 93/60
[2019-02-06] MEDS: PIPERACILLIN/TAZO/PMX 3.375GM 50 ML IV SCH ×3 (08:00→23:50)
[2019-02-06] MEDS ORDERED: LIDOCAINE GEL 2%, 5ML ONE (08:00)
[2019-02-06] MEDS ORDERED: LIDOCAINE 4% TOPICAL SOLUTION 50 ML ONE (08:00)
[2019-02-06] MEDS ORDERED: LIDOCAINE 2%, 20ML ONE (08:00)
[2019-02-06] MEDS: BUDESONIDE 0.5 MG/2 ML INHA INH SCH ×2 (08:15→21:00)
[2019-02-06] MEDS: SODIUM CHLORIDE 0.9% 1,000 ML IV SCH ×3 (08:49→20:32)
[2019-02-06] MEDS: LINEZOLID 600 MG TABLET PO SCH ×2 (08:49→20:02)
[2019-02-06] MEDS: NICOTINE 21 MG/24 HR PATCH.TD24 TD SCH (08:49)
[2019-02-06] MEDS: BICTEGRAV/EMTRICIT/TENOFOV ALA TAB PO SCH (09:00)
[2019-02-06] MEDS ORDERED: FENTANYL PF 100 MCG/2ML ONE (11:34)
[2019-02-06] MEDS ORDERED: MIDAZOLAM 1 MG/ML, 5ML ONE (11:34)
[2019-02-06] MEDS: ENOXAPARIN 40 MG/0.4 ML SQ SCH (12:00)
[2019-02-06 13:01] VITALS: BP 118/66
[2019-02-06 19:05] VITALS: BP 111/68
[2019-02-06] MEDS: IBUPROFEN 200 MG TABLET PO PRN (21:50)
[2019-02-07 00:41] VITALS: BP 91/55
[2019-02-07] MEDS: ALBUTEROL/IPRATROPIUM 2.5MG/0.5MG, 3 ML NPPB SCH ×4 (03:00→19:10)
[2019-02-07 06:26] LABS: MEAN CORPUSCULAR HGB CONC 33.8 g/dL (33.2-36.2); MEAN CORPUSCULAR VOLUME 80.1 fL (81-97); MEAN PLATELET VOLUME 7.5 fL (7.4-10.4); PLATELET COUNT 107 x10^3/uL (130-400); RED BLOOD COUNT 3.49 x10^6/uL (4.38-5.82); RED CELL DISTRIBUTION WIDTH 18.4 % (9.4-14.8)
[2019-02-07 06:31] LABS: CHLORIDE 105 mmol/L (98-107)
[2019-02-07 06:38] LABS: ALANINE AMINOTRANSFERASE 99 U/L (12-78); ALBUMIN 1.7 g/dL (3.4-5.0); ALKALINE PHOSPHATASE 384 U/L (45-117); ANION GAP 5 mmol/L (5-15); BILIRUBIN,TOTAL 1.2 mg/dL (0.2-1.0); CALCIUM 7.5 mg/dL (8.5-10.1); CREATININE 0.78 mg/dL (0.7-1.3); TOTAL PROTEIN 5.3 g/dL (6.4-8.2)
[2019-02-07 06:48] LABS: MD YES
[2019-02-07 06:53] LABS: <PLATELET ESTIMATE> DECREASED; <PLT MORPHOLOGY> NORMAL PLT MORPH; ANISOCYTOSIS 1+; BAND#(MANUAL) 0.06 x10^3/uL; BANDS%(MANUAL) 5 % (0-7); EOS#(MANUAL) 0.01 x10^3/uL (0.0-0.4); EOS% (MANUAL) 1 % (1-7); LYMPH#(MANUAL) 0.13 x10^3/uL (1-3.4); LYMPHS% (MANUAL) 12 % (22-44); METAMYELOCYTES# (MANUAL) 0.02 x10^3/uL (0-0); METAMYELOCYTES% (MANUAL) 2 % (0-1); MICROCYTOSIS 1+; MONOS#(MANUAL) 0.06 x10^3/uL (0.3-2.7); MONOS% (MANUAL) 5 % (2-9); MYELOCYTES# (MANUAL) 0.01 x10^3/uL (0-0); MYELOCYTES% (MANUAL) 1 % (0-0); POLYCHROMASIA 1+; SEG#(MANUAL) 0.81 x10^3/uL (1.8-6.8); SEGS% (MANUAL) 74 % (42-75)
[2019-02-07] MEDS: SODIUM CHLORIDE 0.9% 1,000 ML IV SCH ×2 (08:53→21:00)
[2019-02-07] MEDS: PIPERACILLIN/TAZO/PMX 3.375GM 50 ML IV SCH ×2 (08:53→17:00)
[2019-02-07] MEDS: LINEZOLID 600 MG TABLET PO SCH ×2 (08:56→20:39)
[2019-02-07] MEDS: BICTEGRAV/EMTRICIT/TENOFOV ALA TAB PO SCH (08:56)
[2019-02-07] MEDS: BUDESONIDE 0.5 MG/2 ML INHA INH SCH ×2 (09:00→19:10)
[2019-02-07 09:30] VITALS: BP 94/57
[2019-02-07] MEDS: ENOXAPARIN 40 MG/0.4 ML SQ SCH (12:00)
[2019-02-07] MEDS: NICOTINE 21 MG/24 HR PATCH.TD24 TD SCH (13:40)
[2019-02-07 14:00] VITALS: BP 94/57
[2019-02-07] MEDS ORDERED: PIPERACILLIN/TAZO/PMX 3.375GM 50 ML IV SCH (17:00)
[2019-02-07 18:24] VITALS: BP 107/60
[2019-02-07] MEDS: IBUPROFEN 200 MG TABLET PO PRN (18:33)
[2019-02-08 00:05] VITALS: BP 92/52
[2019-02-08] MEDS: PIPERACILLIN/TAZO/PMX 3.375GM 50 ML IV SCH ×3 (00:47→17:35)
[2019-02-08] MEDS: ALBUTEROL/IPRATROPIUM 2.5MG/0.5MG, 3 ML NPPB SCH ×3 (02:45→20:58)
[2019-02-08 06:00] LABS: CALCIUM 7.2 mg/dL (8.5-10.1); CHLORIDE 103 mmol/L (98-107)
[2019-02-08] MEDS: SODIUM CHLORIDE 0.9% 1,000 ML IV SCH ×3 (06:00→22:22)
[2019-02-08 06:06] LABS: ALANINE AMINOTRANSFERASE 77 U/L (12-78); ALBUMIN 1.7 g/dL (3.4-5.0); ALKALINE PHOSPHATASE 354 U/L (45-117); ANION GAP 5 mmol/L (5-15); BILIRUBIN,TOTAL 0.8 mg/dL (0.2-1.0); CREATININE 0.78 mg/dL (0.7-1.3); TOTAL PROTEIN 5.2 g/dL (6.4-8.2)
[2019-02-08 06:07] LABS: MEAN CORPUSCULAR HEMOGLOBIN 27.1 pg (27.5-34.5); MEAN CORPUSCULAR HGB CONC 33.6 g/dL (33.2-36.2); MEAN CORPUSCULAR VOLUME 80.5 fL (81-97); MEAN PLATELET VOLUME 7.3 fL (7.4-10.4); PLATELET COUNT 114 x10^3/uL (130-400); RED BLOOD COUNT 3.46 x10^6/uL (4.38-5.82); RED CELL DISTRIBUTION WIDTH 18.6 % (9.4-14.8)
[2019-02-08 06:24] LABS: MD YES
[2019-02-08 06:34] LABS: SEG#(MANUAL) 1.03 x10^3/uL (1.8-6.8); SEGS% (MANUAL) 79 % (42-75)
[2019-02-08 06:35] LABS: BAND#(MANUAL) 0.04 x10^3/uL; BANDS%(MANUAL) 3 % (0-7); EOS#(MANUAL) 0.01 x10^3/uL (0.0-0.4); EOS% (MANUAL) 1 % (1-7); LYMPH#(MANUAL) 0.05 x10^3/uL (1-3.4); LYMPHS% (MANUAL) 4 % (22-44); METAMYELOCYTES# (MANUAL) 0.01 x10^3/uL (0-0); METAMYELOCYTES% (MANUAL) 1 % (0-1); MONOS#(MANUAL) 0.16 x10^3/uL (0.3-2.7); MONOS% (MANUAL) 12 % (2-9)
[2019-02-08 06:43] LABS: <PLATELET ESTIMATE> DECREASED; SMALL PLATELETS 1+
[2019-02-08 06:44] LABS: ANISOCYTOSIS 1+; MICROCYTOSIS 1+
[2019-02-08] MEDS: LINEZOLID 600 MG TABLET PO SCH (07:35)
[2019-02-08 08:07] VITALS: BP 103/55
[2019-02-08] MEDS: BUDESONIDE 0.5 MG/2 ML INHA INH SCH ×2 (08:26→20:58)
[2019-02-08] MEDS: BICTEGRAV/EMTRICIT/TENOFOV ALA TAB PO SCH (08:53)
[2019-02-08] MEDS: ENOXAPARIN 40 MG/0.4 ML SQ SCH (12:20)
[2019-02-08] MEDS: NICOTINE 21 MG/24 HR PATCH.TD24 TD SCH (12:21)
[2019-02-08] MEDS ORDERED: SODIUM CHLORIDE NASAL SPRAY 45ML BOTTLE NAS PRN (14:30)
[2019-02-08 15:10] VITALS: BP 88/47
[2019-02-08 19:41] VITALS: BP 97/56
[2019-02-08] MEDS: IBUPROFEN 200 MG TABLET PO PRN (19:52)
[2019-02-09] MEDS: PIPERACILLIN/TAZO/PMX 3.375GM 50 ML IV SCH ×3 (00:56→17:59)
[2019-02-09 04:29] VITALS: BP 95/55
[2019-02-09 05:56] LABS: ALBUMIN 1.7 g/dL (3.4-5.0); ANION GAP 6 mmol/L (5-15); CALCIUM 7.6 mg/dL (8.5-10.1); CHLORIDE 106 mmol/L (98-107)
[2019-02-09 06:00] LABS: ALANINE AMINOTRANSFERASE 69 U/L (12-78); ALKALINE PHOSPHATASE 417 U/L (45-117); BILIRUBIN,TOTAL 0.9 mg/dL (0.2-1.0); CREATININE 0.84 mg/dL (0.7-1.3); TOTAL PROTEIN 5.6 g/dL (6.4-8.2)
[2019-02-09 06:31] LABS: MEAN CORPUSCULAR HEMOGLOBIN 26.8 pg (27.5-34.5); MEAN CORPUSCULAR HGB CONC 33.2 g/dL (33.2-36.2); MEAN CORPUSCULAR VOLUME 80.8 fL (81-97); MEAN PLATELET VOLUME 7.1 fL (7.4-10.4); PLATELET COUNT 103 x10^3/uL (130-400); RED BLOOD COUNT 4.04 x10^6/uL (4.38-5.82); RED CELL DISTRIBUTION WIDTH 18.5 % (9.4-14.8)
[2019-02-09 07:52] LABS: MD YES
[2019-02-09] MEDS: BICTEGRAV/EMTRICIT/TENOFOV ALA TAB PO SCH (08:01)
[2019-02-09] MEDS: SODIUM CHLORIDE 0.9% 1,000 ML IV SCH ×2 (08:01→16:00)
[2019-02-09 08:05] LABS: ANISOCYTOSIS 1+; BAND#(MANUAL) 0.05 x10^3/uL; BANDS%(MANUAL) 4 % (0-7); LYMPH#(MANUAL) 0.26 x10^3/uL (1-3.4); LYMPHS% (MANUAL) 20 % (22-44); MICROCYTOSIS 1+; MONOS#(MANUAL) 0.03 x10^3/uL (0.3-2.7); MONOS% (MANUAL) 2 % (2-9); SEG#(MANUAL) 0.96 x10^3/uL (1.8-6.8); SEGS% (MANUAL) 74 % (42-75)
[2019-02-09 08:06] LABS: <PLATELET ESTIMATE> DECREASED; <PLT MORPHOLOGY> NORMAL PLT MORPH
[2019-02-09] MEDS: BUDESONIDE 0.5 MG/2 ML INHA INH SCH ×2 (08:40→20:02)
[2019-02-09] MEDS: ALBUTEROL/IPRATROPIUM 2.5MG/0.5MG, 3 ML NPPB SCH ×2 (08:40→20:02)
[2019-02-09 09:23] VITALS: BP 125/98
[2019-02-09] MEDS: ENOXAPARIN 40 MG/0.4 ML SQ SCH (12:00)
[2019-02-09] MEDS: NICOTINE 21 MG/24 HR PATCH.TD24 TD SCH (12:11)
[2019-02-09] MEDS: IBUPROFEN 200 MG TABLET PO PRN ×2 (12:19→19:51)
[2019-02-09 15:59] VITALS: BP 104/67
[2019-02-09 19:49] VITALS: BP 157/77
[2019-02-10] MEDS: SODIUM CHLORIDE 0.9% 1,000 ML IV SCH ×3 (01:55→19:30)
[2019-02-10] MEDS: PIPERACILLIN/TAZO/PMX 3.375GM 50 ML IV SCH ×3 (01:56→18:30)
[2019-02-10 01:58] VITALS: BP 95/56
[2019-02-10 04:54] LABS: ALBUMIN 1.8 g/dL (3.4-5.0); ANION GAP 5 mmol/L (5-15); CALCIUM 7.6 mg/dL (8.5-10.1); CHLORIDE 103 mmol/L (98-107)
[2019-02-10 05:03] LABS: % IRON SATURATION 26 % (20-55); ALANINE AMINOTRANSFERASE 67 U/L (12-78); ALKALINE PHOSPHATASE 385 U/L (45-117); BILIRUBIN,TOTAL 1.1 mg/dL (0.2-1.0); CREATINE KINASE, TOTAL 25 U/L (39-308); CREATININE 0.78 mg/dL (0.7-1.3); IRON LEVEL 43 mcg/dL (65-175); TOTAL IRON BINDING CAPACITY 166 mcg/dL (250-450); TOTAL PROTEIN 5.4 g/dL (6.4-8.2)
[2019-02-10 05:53] LABS: MD YES; MEAN CORPUSCULAR HGB CONC 33.5 g/dL (33.2-36.2); MEAN CORPUSCULAR VOLUME 80.6 fL (81-97); MEAN PLATELET VOLUME 7.2 fL (7.4-10.4); PLATELET COUNT 86 x10^3/uL (130-400); RED BLOOD COUNT 3.44 x10^6/uL (4.38-5.82); RED CELL DISTRIBUTION WIDTH 19.2 % (9.4-14.8)
[2019-02-10 06:18] LABS: <PLATELET ESTIMATE> DECREASED; <PLT MORPHOLOGY> NORMAL PLT MORPH; ANISOCYTOSIS 1+; BAND#(MANUAL) 0.06 x10^3/uL; BANDS%(MANUAL) 6 % (0-7); LYMPH#(MANUAL) 0.14 x10^3/uL (1-3.4); LYMPHS% (MANUAL) 14 % (22-44); METAMYELOCYTES# (MANUAL) 0.02 x10^3/uL (0-0); METAMYELOCYTES% (MANUAL) 2 % (0-1); MICROCYTOSIS 1+; MONOS#(MANUAL) 0.06 x10^3/uL (0.3-2.7); MONOS% (MANUAL) 6 % (2-9); SEG#(MANUAL) 0.72 x10^3/uL (1.8-6.8); SEGS% (MANUAL) 72 % (42-75)
[2019-02-10 06:58] VITALS: BP 127/71
[2019-02-10] MEDS: ALBUTEROL/IPRATROPIUM 2.5MG/0.5MG, 3 ML NPPB SCH ×2 (07:11→20:45)
[2019-02-10] MEDS: BUDESONIDE 0.5 MG/2 ML INHA INH SCH ×2 (07:11→20:45)
[2019-02-10] MEDS: BICTEGRAV/EMTRICIT/TENOFOV ALA TAB PO SCH (08:37)
[2019-02-10] MEDS: IBUPROFEN 200 MG TABLET PO PRN ×2 (10:35→20:04)
[2019-02-10] MEDS: ENOXAPARIN 40 MG/0.4 ML SQ SCH (12:00)
[2019-02-10] MEDS ORDERED: IBUPROFEN 200 MG TABLET PO ONE (12:10)
[2019-02-10] MEDS: NICOTINE 21 MG/24 HR PATCH.TD24 TD SCH (12:11)
[2019-02-10 12:28] VITALS: BP 99/56
[2019-02-10 19:17] VITALS: BP 124/66
[2019-02-11 00:24] VITALS: BP 90/55
[2019-02-11] MEDS: PIPERACILLIN/TAZO/PMX 3.375GM 50 ML IV SCH ×3 (02:24→19:13)
[2019-02-11] MEDS: SODIUM CHLORIDE 0.9% 1,000 ML IV SCH ×3 (03:52→22:34)
[2019-02-11 05:34] LABS: MEAN CORPUSCULAR HEMOGLOBIN 26.1 pg (27.5-34.5); MEAN CORPUSCULAR HGB CONC 33.2 g/dL (33.2-36.2); MEAN CORPUSCULAR VOLUME 78.4 fL (81-97); PLATELET COUNT 58 x10^3/uL (130-400); RED BLOOD COUNT 3.17 x10^6/uL (4.38-5.82); RED CELL DISTRIBUTION WIDTH 19.5 % (9.4-14.8)
[2019-02-11 05:39] LABS: ALBUMIN 1.6 g/dL (3.4-5.0); ANION GAP 7 mmol/L (5-15); CALCIUM 7.3 mg/dL (8.5-10.1); CHLORIDE 104 mmol/L (98-107)
[2019-02-11 05:43] LABS: ALANINE AMINOTRANSFERASE 85 U/L (12-78); ALKALINE PHOSPHATASE 423 U/L (45-117); CREATININE 0.83 mg/dL (0.7-1.3)
[2019-02-11 05:59] LABS: MD YES
[2019-02-11 06:06] LABS: BAND#(MANUAL) 0.11 x10^3/uL; BANDS%(MANUAL) 12 % (0-7); LYMPH#(MANUAL) 0.08 x10^3/uL (1-3.4); LYMPHS% (MANUAL) 9 % (22-44); METAMYELOCYTES# (MANUAL) 0.01 x10^3/uL (0-0); METAMYELOCYTES% (MANUAL) 1 % (0-1); MONOS#(MANUAL) 0.05 x10^3/uL (0.3-2.7); MONOS% (MANUAL) 5 % (2-9); SEG#(MANUAL) 0.66 x10^3/uL (1.8-6.8); SEGS% (MANUAL) 73 % (42-75)
[2019-02-11 06:07] LABS: <PLATELET ESTIMATE> DECREASED; <PLT MORPHOLOGY> NORMAL PLT MORPH; ANISOCYTOSIS 1+; MICROCYTOSIS 1+
[2019-02-11 06:50] VITALS: BP 90/51
[2019-02-11] MEDS: BUDESONIDE 0.5 MG/2 ML INHA INH SCH ×2 (07:23→21:30)
[2019-02-11] MEDS: ALBUTEROL/IPRATROPIUM 2.5MG/0.5MG, 3 ML NPPB SCH ×2 (07:23→21:29)
[2019-02-11] MEDS: BICTEGRAV/EMTRICIT/TENOFOV ALA TAB PO SCH (09:38)
[2019-02-11] MEDS: IBUPROFEN 200 MG TABLET PO PRN ×2 (11:43→22:47)
[2019-02-11] MEDS: NICOTINE 21 MG/24 HR PATCH.TD24 TD SCH (11:43)
[2019-02-11] MEDS: ENOXAPARIN 40 MG/0.4 ML SQ SCH (11:47)
[2019-02-11 12:51] VITALS: BP 98/55
[2019-02-11 19:15] VITALS: BP 131/67
[2019-02-11 23:03] VITALS: BP 103/62
[2019-02-11 23:40] VITALS: BP 128/74
[2019-02-12] VITALS (8 sets, daily range): BP systolic 84–134; BP diastolic 44–76
[2019-02-12] MEDS: PIPERACILLIN/TAZO/PMX 3.375GM 50 ML IV SCH ×2 (02:21→09:48)
[2019-02-12] MEDS ORDERED: SODIUM CHLORIDE 0.9% 1,000ML IVBOLUS ONE (03:00)
[2019-02-12] MEDS: ALBUTEROL/IPRATROPIUM 2.5MG/0.5MG, 3 ML NPPB SCH (07:00)
[2019-02-12] MEDS: BUDESONIDE 0.5 MG/2 ML INHA INH SCH (07:00)
[2019-02-12] MEDS: BICTEGRAV/EMTRICIT/TENOFOV ALA TAB PO SCH (09:00)
[2019-02-12] MEDS: SODIUM CHLORIDE 0.9% 1,000 ML IV SCH (09:48)
[2019-02-12] MEDS ORDERED: FENTANYL PF 100 MCG/2ML ONE ×2 (10:54→10:55)
[2019-02-12] MEDS ORDERED: FLUMAZENIL 0.1 MG/1 ML, 5ML ONE (10:55)
[2019-02-12] MEDS ORDERED: MIDAZOLAM 1 MG/ML, 5ML ONE (10:55)
[2019-02-12] MEDS ORDERED: NALOXONE 1 MG/ML, 2ML ONE (10:55)
[2019-02-12] MEDS: NICOTINE 21 MG/24 HR PATCH.TD24 TD SCH (12:00)
[2019-02-12] MEDS: ENOXAPARIN 40 MG/0.4 ML SQ SCH ×3 (12:00→13:27)
[2019-02-12] MEDS ORDERED: SODIUM CHLORIDE 0.9%, 250ML IVBOLUS ONE ×2 (12:00→13:30)
[2019-02-12 13:51] LABS: ANION GAP 6 mmol/L (5-15); CALCIUM 7.1 mg/dL (8.5-10.1); CHLORIDE 103 mmol/L (98-107); CREATININE 0.82 mg/dL (0.7-1.3)
[2019-02-12 14:02] LABS: MEAN CORPUSCULAR HEMOGLOBIN 26.2 pg (27.5-34.5); MEAN CORPUSCULAR HGB CONC 33.5 g/dL (33.2-36.2); MEAN CORPUSCULAR VOLUME 78.3 fL (81-97); MEAN PLATELET VOLUME 7.6 fL (7.4-10.4); PLATELET COUNT 51 x10^3/uL (130-400); RED BLOOD COUNT 2.94 x10^6/uL (4.38-5.82); RED CELL DISTRIBUTION WIDTH 19.4 % (9.4-14.8)
[2019-02-12 14:03] LABS: MD YES
[2019-02-12 14:31] LABS: BAND#(MANUAL) 0.06 x10^3/uL; BANDS%(MANUAL) 8 % (0-7); LYMPH#(MANUAL) 0.07 x10^3/uL (1-3.4); LYMPHS% (MANUAL) 10 % (22-44); METAMYELOCYTES# (MANUAL) 0.02 x10^3/uL (0-0); METAMYELOCYTES% (MANUAL) 3 % (0-1); MONOS#(MANUAL) 0.01 x10^3/uL (0.3-2.7); MONOS% (MANUAL) 2 % (2-9); MYELOCYTES# (MANUAL) 0.01 x10^3/uL (0-0); MYELOCYTES% (MANUAL) 1 % (0-0); REACTIVE LYMPHS % (MANUAL) 6 % (0-0); SEG#(MANUAL) 0.49 x10^3/uL (1.8-6.8); SEGS% (MANUAL) 70 % (42-75)
[2019-02-12 14:32] LABS: ANISOCYTOSIS 2+; REACTIVE LYMPHS # (MANUAL) 0.04 x10^3/uL (0-0)
[2019-02-12 14:33] LABS: <PLATELET ESTIMATE> DECREASED; <PLT MORPHOLOGY> NORMAL PLT MORPH; MICROCYTOSIS 1+
== END 2019-02-12 19:30 | disposition hospice, home (50) | DRG 974 ==
LOC: ED 07:42 → EDIP 09:18 → 3N 10:59
PROVIDERS: ADMIT Internal Medicine Infectious Disease; ATTEND Hospitalist
PROC: 0B9H8ZX Drainage of Lung Lingula, Via Natural or Artificial Opening Endoscopic, Diagnostic (ICD-10-PCS; principal; 2019-02-06)
PROC: 0B9D8ZX Drainage of Right Middle Lung Lobe, Via Natural or Artificial Opening Endoscopic, Diagnostic (ICD-10-PCS; 2019-02-06)
DX: A41.9 Sepsis, unspecified organism (principal); J96.21 Acute and chronic respiratory failure with hypoxia; B20 Human immunodeficiency virus [HIV] disease; J15.9 Unspecified bacterial pneumonia; E46 Unspecified protein-calorie malnutrition; E87.1 Hypo-osmolality and hyponatremia; J44.0 Chronic obstructive pulmonary disease with (acute) lower respiratory infection; D61.818 Other pancytopenia; R65.20 Severe sepsis without septic shock; Z68.25 Body mass index [BMI] 25.0-25.9, adult; E86.0 Dehydration; F15.10 Other stimulant abuse, uncomplicated; K72.90 Hepatic failure, unspecified without coma; K80.20 Calculus of gallbladder without cholecystitis without obstruction; M81.0 Age-related osteoporosis without current pathological fracture; Z51.5 Encounter for palliative care; Z66 Do not resuscitate; Z72.0 Tobacco use; Z83.3 Family history of diabetes mellitus
CPT/HCPCS: 36415; 36600; 84145; 87449; 87536; 96365; 96367; 99291; J3490; J7620; J7626; 31622; 31624; 71045; 71260; 76700; 80048; 80053; 80074; 80307; 82010; 82550; 82803; 83540; 83550; 83605; 83615; 83735; 83880; 84100; 84443; 85025; 85610; 85651; 86140; 86361; 86480; 86635; 86738; 87015; 87040; 87070; 87081; 87102; 87107; 87116; 87205; 87206; 87252; 87281; 87305; 87497; 87633; 87899; 88108; 88112; 88312; 93005; 94640; G0378; J1650; J2250; J2543; J3010; J3370; Q9967; J2310; J7030; J7050